=== PATIENT | female | born 1960 | race Caucasian/White ===

== ENCOUNTER 2021-05-29 10:53 | Emergency (ER) | payer OTHER ==
[~2021-05-29] VITALS: Ht 162.6 cm; Wt 136.1 kg
[2021-05-29 13:45] LABS: HEMATOCRIT 39.6 % (37.0-47.0); HEMOGLOBIN 13.3 gm/dL (12.0-15.0); MCHC 33.7 g/dL (28.0-37.0); MCV 82.9 fL (80.0-100.0); MPV 7.3 fl. (7.2-11.1); NUCLEATED RBCS 0 /100WBC; PLATELET COUNT* 317 thou/uL (150-400); RBC 4.77 mil/uL (4.20-5.00); RDW-CV 14.5 % (10.5-14.5); WBC 16.9 thou/uL (4.0-11.0)
[2021-05-29 13:58] LABS: CALCIUM 8.8 mg/dL (8.5-10.1); CREATININE 0.8 mg/dL (0.6-1.3); POTASSIUM 4.1 mmol/L (3.5-5.1)
[2021-05-29 14:02] LABS: ALBUMIN 3.9 g/dL (3.4-5.0); TOTAL BILIRUBIN 0.4 mg/dL (<0.1-1.0); TOTAL PROTEIN 7.3 g/dL (6.4-8.2)
[2021-05-29 14:31] LABS: ABSOLUTE LYMPHOCYTES 0.7 thou/uL (0.8-5.3); ABSOLUTE NEUTROPHILS 15.2 thou/uL (1.6-8.1); PLATELET ESTIMATE ADEQUATE
[2021-05-29 15:00] VITALS: BP 164/72
== END 2021-05-29 15:05 | disposition short-term general hospital (02) ==
LOC: M.ERS 10:53
PROVIDERS: Family Medicine
DX: S52.592A Other fractures of lower end of left radius, initial encounter for closed fracture (principal); Z20.822 Contact with and (suspected) exposure to COVID-19; S82.391A Other fracture of lower end of right tibia, initial encounter for closed fracture; S82.831A Other fracture of upper and lower end of right fibula, initial encounter for closed fracture; R51.9 Headache, unspecified; Z88.5 Allergy status to narcotic agent; Z88.0 Allergy status to penicillin; Z88.2 Allergy status to sulfonamides; Z90.49 Acquired absence of other specified parts of digestive tract; V49.88XA Car occupant (driver) (passenger) injured in other specified transport accidents, initial encounter; Y93.89 Activity, other specified; Y92.413 State road as the place of occurrence of the external cause; Y99.9 Unspecified external cause status